=== PATIENT | female | born 1975 | race Caucasian/White ===

== ENCOUNTER 2018-01-03 16:41 | Outpatient (REF) | payer BC, SELFPAY ==
[2018-01-03 22:01] LABS: HCT 43.5 % (36.0-46.0); HGB 14.4 g/dL (12.0-15.5); Mean Corp. HGB Concentration 33.1 g/dL (32.0-36.0); Mean Corpuscular Hemoglobin 30.5 pg (27.0-33.0); Mean Corpuscular Volume 92.2 fL (80-95); Mean Platelet Volume 11.9 fL (8.0-11.0); Platelet Count 268 x1000/uL (130-400); RBC 4.72 m/cumm (4.00-5.20); RBC Distribution Width 12.7 % (11.7-14.6); White Blood Cell Count 4.75 k/cumm (4.4-10.8)
[2018-01-03 22:23] LABS: TSH (W/Ref FT4) 1.45 uIU/mL (0.358-3.74)
[2018-01-03 23:08] LABS: Hemoglobin A1C 5.6 % (4.5-6.2)
== END 2018-01-03 17:01 ==
LOC: NCHCN 16:41
PROVIDERS: PCP Nurse Practitioner Family; Visit Provider Nurse Practitioner Family
DX: F51.09 Other insomnia not due to a substance or known physiological condition (principal); G43.109 Migraine with aura, not intractable, without status migrainosus; R53.83 Other fatigue; B07.9 Viral wart, unspecified; Z13.1 Encounter for screening for diabetes mellitus; G47.26 Circadian rhythm sleep disorder, shift work type; Z97.5 Presence of (intrauterine) contraceptive device
CPT/HCPCS: 85027; 83036; 84443

== ENCOUNTER 2019-09-03 15:47 | Outpatient (REF) | payer OTHER, SELFPAY ==
--- NOTE | 2019-09-03 14:00 | PAPFT_PTH ---
PATIENT: KyleJuly [facility] U[facility][id number] AGE/SX: 44/F ROOM: RE09/03/[address]: Angie House : 1975 BED: DIS: 09/03/2019 SPEC #: [id number] RECD: 09/04/19 13:05 STATUS: SHANI CLEMENT #: [id number] ASTRID: 09/03/19 14:[address]: Angie Packer DEPT: [facility] Cytology RECD BY: Minna Arias Tissues: 1 - CX/ENDOCX FOR PAP SMEARS Procedures: PAP THIN PREP/[facility] Screening HPV DNA PROBE Comments: [id number] (CHLAMYDIA/GC)
[2019-09-03 21:17] LABS: Hemoglobin A1C 5.2 % (3.8-5.6)
[2019-09-03 21:33] LABS: Calculated LDL 176 mg/dL (<100); Cholesterol 263 mg/dL (<200); HDL Cholesterol 49 mg/dL (40-60); TSH 1.57 uIU/mL (0.36-3.74); Triglyceride 190 mg/dL (<150)
[2019-09-05 11:23] LABS: Syphilis Serology (RPR) Negative (Negative)
[2019-09-05 11:48] LABS: HIV-1/2 Ag & Ab Screen Negative (Negative); Hepatitis C Ab w Rflx HCV PCR Negative (Negative)
[2019-09-05 15:15] LABS: Chlamydia Result Negative (Negative); GC Result Negative (Negative)
== END 2019-09-03 16:07 ==
LOC: NCHCN 15:47
PROVIDERS: PCP Nurse Practitioner Family; Visit Provider Nurse Practitioner Family
DX: Z00.00 Encounter for general adult medical examination without abnormal findings (principal); E78.5 Hyperlipidemia, unspecified; E66.9 Obesity, unspecified; F17.200 Nicotine dependence, unspecified, uncomplicated; Z13.1 Encounter for screening for diabetes mellitus; Z11.3 Encounter for screening for infections with a predominantly sexual mode of transmission; Z11.4 Encounter for screening for human immunodeficiency virus [HIV]; Z11.59 Encounter for screening for other viral diseases; Z12.4 Encounter for screening for malignant neoplasm of cervix; Z11.51 Encounter for screening for human papillomavirus (HPV)
CPT/HCPCS: 80061; 86803; 87389; 87491; 87591; 88142; 83036; 84443; 86592; 87624

== ENCOUNTER 2022-11-02 09:46 | Outpatient (REF) | payer OTHER, SELFPAY ==
[2022-11-02 15:50] LABS: HCT 46.5 % (36.0-46.0); HGB 15.9 g/dL (11.2-15.7); MCH 32.4 pg (27.0-33.0); MCHC 34.2 % (32.0-36.0); MCV 95 fL (80-95); MPV 11.7 fL (8.0-11.0); Platelet Count 248 10^3/uL (130-400); RDW 12.8 % (11.7-14.6); RDW-SD 45.1 fL; WBC 11.58 10^3/uL (4.4-10.8)
[2022-11-02 16:35] LABS: ALT 20 U/L (14-59); AST 18 U/L (15-37); Albumin 3.9 g/dL (3.4-5.0); Alkaline Phosphatase 103 U/L (46-116); Anion Gap 7.7 mmol/L (3-11); BUN 13 mg/dL (7-18); Bilirubin, Total 0.4 mg/dL (0.2-1.0); CO2 26.3 mmol/L (21.0-32.0); CREATININE 0.8 mg/dL (0.55-1.02); Calcium 9.1 mg/dL (8.5-10.1); Calculated LDL 158 mg/dL (<100); Chloride 104 mmol/L (98-107); Cholesterol 223 mg/dL (<200); Estimated GFR 91.97 (mL/min/1.73m2); Glucose 91 mg/dL (74-106); HDL Cholesterol 45 mg/dL (40-60); Sodium 138 mmol/L (136-145); TSH 1.53 uIU/mL (0.36-3.74); Total Protein 7.5 g/dL (6.4-8.2); Triglyceride 100 mg/dL (<150)
[2022-11-02 17:18] LABS: Hemoglobin A1C 5.4 % (<5.7)
== END 2022-11-02 09:47 | disposition home or self-care (01) ==
LOC: NCHCN 09:46
PROVIDERS: PCP Nurse Practitioner Family; Visit Provider Nurse Practitioner Family
DX: R53.83 Other fatigue (principal); Z13.220 Encounter for screening for lipoid disorders; Z13.1 Encounter for screening for diabetes mellitus; Z13.29 Encounter for screening for other suspected endocrine disorder
CPT/HCPCS: 80053; 80061; 85027; 83036; 84443

== ENCOUNTER 2025-03-20 08:19 | Outpatient (REF) | payer BC, SELFPAY ==
[2025-03-20 15:16] LABS: HCT 46.9 % (36.0-46.0); HGB 16.0 g/dL (11.2-15.7); MCH 32.9 pg (27.0-33.0); MCHC 34.1 % (32.0-36.0); MCV 97 fL (80-95); MPV 11.6 fL (8.0-11.0); Platelet Count 238 10^3/uL (130-400); RBC 4.86 10^6/uL (3.93-5.22); RDW 12.6 % (11.7-14.6); RDW-SD 45.1 fL; WBC 9.57 10^3/uL (4.4-10.8)
[2025-03-20 15:31] LABS: TSH 2.58 uIU/mL (0.55-4.78)
[2025-03-20 15:36] LABS: ALT 14 U/L (10-49); AST 19 U/L (<34); Albumin 4.5 g/dL (3.2-5.0); Alkaline Phosphatase 94 U/L (46-116); Anion Gap 6 mmol/L (3-11); BUN 13 mg/dL (9-23); Bilirubin, Total 0.5 mg/dL (0.2-1.2); CO2 24.0 mmol/L (20.0-31.0); Calcium 9.3 mg/dL (8.3-10.6); Chloride 110 mmol/L (98-107); Cholesterol 234 mg/dL (<200); Glucose 88 mg/dL (74-106); HDL Cholesterol 45 mg/dL (>or=50); Hemoglobin A1C 5.1 % (<5.7); Potassium 4.5 mmol/L (3.5-5.1); Sodium 140 mmol/L (136-145); Total Protein 7.4 g/dL (5.7-8.2)
== END 2025-03-20 08:20 | disposition home or self-care (01) ==
LOC: NCHCN 08:19
PROVIDERS: PCP Nurse Practitioner Family; Visit Provider Nurse Practitioner Family
DX: Z13.220 Encounter for screening for lipoid disorders (principal); Z13.1 Encounter for screening for diabetes mellitus; D64.9 Anemia, unspecified; Z13.228 Encounter for screening for other metabolic disorders; Z13.29 Encounter for screening for other suspected endocrine disorder
CPT/HCPCS: 80053; 80061; 85027; 83036; 84443

== ENCOUNTER 2025-03-25 12:32 | Outpatient (REF) | payer BC, SELFPAY ==
--- NOTE | 2025-03-25 15:30 | PAPFT_PTH ---
PATIENT: KyleJuly LOC: [facility] U#:[id number] AGE/SX: 49/F ROOM: RE03/25/[address]: Angie House : 1975 BED: DIS: 03/25/2025 SPEC #: [id number] RECD: 03/26/25 13:04 STATUS: SHANI CLEMENT #: [id number] ASTRID: 03/25/25 15:[address]: Angie Packer DEPT: [facility] Cytology RECD BY: Minna Arias Tissues: 1 - CX/ENDOCX FOR PAP SMEARS Procedures: PAP THIN PREP/[facility] Screening HPV DNA PROBE Comments: [id number] (HPV 16 & 18/45) (CHLAMYDIA/GC)
[2025-03-27 11:03] LABS: Chlamydia Result Negative (Negative); GC Result Negative (Negative)
== END 2025-03-25 12:33 | disposition home or self-care (01) ==
LOC: LBN 12:32
PROVIDERS: PCP Nurse Practitioner Family; Visit Provider Nurse Practitioner Family
DX: Z12.4 Encounter for screening for malignant neoplasm of cervix (principal)
CPT/HCPCS: 87491; 87591; 88142; 87624